=== PATIENT | female | born 1935 | race Caucasian/White ===

== ENCOUNTER 2022-08-18 22:18 | Emergency (ER) | payer MEDICARE, OTHER ==
[~2022-08-18] VITALS: Ht 175.3 cm; Wt 84.0 kg
--- NOTE | 2022-08-18 23:41 | ED EENT ---
History of Present Illness General Chief Complaint: Nasal Problems Stated Complaint: NOSE BLEED Nursing Triage Note: left sided nose bleed since 2129. reports 4th nose bleed this week Source: patient, family Exam Limitations: no limitations History of Present Illness Date Seen by Provider: Aug 18, 2022 Time Seen by Provider: 23:25 Initial Comments Patient is an 87-year-old female who presents to the emergency department today with a chief complaint of nosebleed. Patient states it started at about 845 this evening. She states she bled for at least an hour to 2 hours. She did swallow a lot of blood. She denies nausea. She denies trauma to the nose. She has had nasal congestion and has been using some nasal sprays in her nose. She is not on blood thinners. She has not had fevers chills. She has had a mild cough with her congestion. No chest pain or shortness of breath. No palpitations. No abdominal pain. At the time of presentation her bleeding appears controlled/stopped. Vital signs are reviewed, within normal limits. Patient is in no acute distress. Timing/Duration: abrupt Severity: moderate Location: nose Prearrival Treatment: squeezing nostrils (ice pack to nose) Associated Symptoms: cough, other (cold congestion symptoms) Allergies and Home Medications Allergies Coded Allergies: cefaclor (Verified Allergy, Unknown, 08/18/22) Patient Home Medication List Home Medication List Reviewed: Yes Review of Systems Review of Systems Constitutional: see HPI Eyes: No Symptoms Reported Ears: No Symptoms Reported Nose: epistaxis Mouth: no symptoms reported Throat: no symptoms reported Respiratory: cough (mild) Cardiovascular: no symptoms reported Gastrointestinal: no symptoms reported Musculoskeletal: no symptoms reported Skin: no symptoms reported Neurological: No Symptoms Reported Past [id number]-Oxxfos Hx Patient Social History Tobacco Use?: No Smoking Status: Former Smoker Substance use?: No Alcohol Use?: Yes Alcohol Frequency: Once in a while Pt feels they are or have been: No Immunizations Up To Date First/Initial COVID19 Vaccinat: x1 Past Medical History Surgery/Hospitalization HX: htn, gerd Physical Exam Vital Signs Vital Signs - First Documented 08/18/22 22:45 Temp 36.2 Pulse 81 Resp 20 B/P (MAP) 168/78 (108) Pulse Ox 97 O2 Delivery Room Air Height, Weight, BMI Height: '" Weight: lbs. oz. kg; 27.00 BMI Method: General Appearance: WD/WN, no apparent distress Eyes: bilateral eye normal inspection, bilateral eye PERRL, bilateral eye EOMI Ears: bilateral ear auricle normal, bilateral ear canal normal, bilateral ear TM normal Nose: other (nasal mucosal congestion; hyperemia bilateral nasal turbinates; no active bleeding noted; dried blood at left nare more than right) Mouth/Throat: other (blood noted in mouth and posterior pharynx; no active bleeding) Cardiovascular: regular rate, rhythm Respiratory: no respiratory distress, no accessory muscle use Gastrointestinal: non tender, soft Neurologic/Psychiatric: alert, normal mood/affect, oriented x 3 Skin: normal color, warm/dry Progress/Results/Core Measures Results/Orders Lab Results Laboratory Tests Test 08/19/22 00:00 Range/Units White Blood Count 9.1 4.3-11.0 10^3/uL Red Blood Count 3.87 3.80-5.11 10^6/uL Hemoglobin 11.9 11.5-16.0 g/dL Hematocrit 36 35-52 % Mean Corpuscular Volume 92 80-99 fL Mean Corpuscular Hemoglobin 31 25-34 pg Mean Corpuscular Hemoglobin Concent 33 32-36 g/dL Red Cell Distribution Width 13.3 10.0-14.5 % Platelet Count 238 130-400 10^3/uL Mean Platelet Volume 9.3 9.0-12.2 fL Immature Granulocyte % (Auto) 0 % Neutrophils (%) (Auto) 77 H 42-75 % Lymphocytes (%) (Auto) 14 12-44 % Monocytes (%) (Auto) 7 0-12 % Eosinophils (%) (Auto) 1 0-10 % Basophils (%) (Auto) 1 0-10 % Neutrophils # (Auto) 7.0 1.8-7.8 10^3/uL Lymphocytes # (Auto) 1.3 1.0-4.0 10^3/uL Monocytes # (Auto) 0.7 0.0-1.0 10^3/uL Eosinophils # (Auto) 0.1 0.0-0.3 10^3/uL Basophils # (Auto) 0.1 0.0-0.1 10^3/uL Immature Granulocyte # (Auto) 0.0 0.0-0.1 10^3/uL My Orders Orders - NANCIE FLOWER MD Cbc With Automated Diff (08/18/22 23:35) Ondansetron Oral Dissolve Tab (Zofran (08/18/22 23:45) Medications Given in ED Current Medications Medications Dose Ordered Sig/Kailey Route Start Time Stop Time Status Last Admin Dose Admin Ondansetron HCl 4 mg ONCE ONCE PO 08/18/22 23:45 08/18/22 23:46 DC 08/18/22 23:49 4 MG Vital Signs/I&O 08/18/22 08/19/22 22:45 00:41 Temp 36.2 36.2 Pulse 81 69 Resp 20 16 B/P (MAP) 168/78 (108) 142/79 Pulse Ox 97 94 O2 Delivery Room Air Room Air Blood Pressure Mean: 108 Progress Progress Note : Time: 00:09 Progress Note Patient seen and examined, 87-year-old with nosebleed this evening. Evaluation today includes physical exam and CBC. Physical examination pertinent for nasal mucosal congestion and hyperemia. No active bleeding. Dried blood at the nares also in the oropharynx. Vital signs are stable. No abdominal pain. No hypoxia. No tachycardia. Neurologically normal. Differential diagnosis include coagulopathy, nasal trauma, infection. CBC reviewed and WNL. No anemia. her VS remained stable she was monitored a short while, no return of bleeding. Patient provided reassurance. return precautions provided. Departure Impression Primary Impression: Epistaxis Disposition: 01 HOME, SELF-CARE Condition: Stable Departure-Patient Inst. Decision time for Depature: 00:35 Referrals: NO,LOCAL PHYSICIAN (PCP/Family) Primary Care Physician Patient Instructions: Nosebleeds ED Add. Discharge Instructions: Continue your current daily medications. Use a Saline mist to help keep your nasal passages moist. Running a cool mist humidifier in your room at night will help with this as well. Avoid using nasal sprays for the time being unless it is just saline mist. They also make saline gel nasal qtips that you can use to keep the inside of your nose moist. Direct pressure just under the nasal bone for 5-7minutes is the best way to stop nose bleeds; always tip your head forward, not back to help not swallow so much blood. Return to the Emergency Department if you have any new, emergent or concerning symptoms. NANCIE FLOWER MD Aug 18, 2022 23:41
[2022-08-18] MEDS ORDERED: ONDANSETRON 4 MG (ZOFRAN) ORAL DISSOLVE TAB PO ONE (23:45)
[2022-08-19 00:10] LABS: BASOPHILS # (AUTO) 0.1 10^3/uL (0.0-0.1); BASOPHILS % (AUTO) 1 % (0-10); EOSINOPHILS # (AUTO) 0.1 10^3/uL (0.0-0.3); EOSINOPHILS % (AUTO) 1 % (0-10); HEMATOCRIT 36 % (35-52); HEMOGLOBIN 11.9 g/dL (11.5-16.0); LYMPHOCYTES # (AUTO) 1.3 10^3/uL (1.0-4.0); LYMPHOCYTES % (AUTO) 14 % (12-44); MEAN CORPUSCULAR HEMOGLOBIN 31 pg (25-34); MEAN CORPUSCULAR HGB CONC 33 g/dL (32-36); MEAN CORPUSCULAR VOLUME 92 fL (80-99); MEAN PLATELET VOLUME 9.3 fL (9.0-12.2); MONOCYTES # (AUTO) 0.7 10^3/uL (0.0-1.0); MONOCYTES % (AUTO) 7 % (0-12); NEUTROPHILS % (AUTO) 77 % (42-75); PLATELET COUNT 238 10^3/uL (130-400); WHITE BLOOD COUNT 9.1 10^3/uL (4.3-11.0)
[2022-08-19 00:41] VITALS: BP 142/79
== END 2022-08-19 00:53 | disposition home or self-care (01) ==
LOC: ER 22:20
DX: R04.0 Epistaxis (principal); R09.81 Nasal congestion; Z87.891 Personal history of nicotine dependence; Z28.311 Partially vaccinated for COVID-19
CPT/HCPCS: 36415; 85025; 99283